=== PATIENT | male | born 1985 | race Caucasian/White ===

== ENCOUNTER 2020-09-27 16:12 | Emergency (ER) | payer OTHER ==
[~2020-09-27] VITALS: Ht 180.3 cm; Wt 68.0 kg
[~2020-09-27 16:12] MED LIST: CLINDAMYCIN HC300 MG PO; DEXILANT60 M1 PO; MOTRIN800 MG PO; NKHM; STOMACH PILL; TRAMADOL HCL50 MG PO
== END 2020-09-27 18:45 | disposition home or self-care (01) ==
LOC: ED 16:12
DX: S93.492A Sprain of other ligament of left ankle, initial encounter (principal); Z79.899 Other long term (current) drug therapy; X50.1XXA Overexertion from prolonged static or awkward postures, initial encounter; Y93.89 Activity, other specified; Y92.89 Other specified places as the place of occurrence of the external cause; Y99.9 Unspecified external cause status

== ENCOUNTER 2020-12-17 01:51 | Emergency (ER) | payer OTHER ==
[~2020-12-17] VITALS: Ht 182.8 cm; Wt 59.4 kg
[2020-12-17] MEDS ORDERED: SEPTDS PO (02:24)
== END 2020-12-17 02:37 | disposition home or self-care (01) ==
LOC: ED 01:51
DX: M79.644 Pain in right finger(s) (principal); M79.89 Other specified soft tissue disorders; L53.9 Erythematous condition, unspecified; Z79.899 Other long term (current) drug therapy

== ENCOUNTER 2022-07-02 09:16 | Emergency (ER) | payer SELFPAY ==
[~2022-07-02] VITALS: Ht 180.3 cm; Wt 70.8 kg
[~2022-07-02 09:16] MED LIST changes: +SEPTDS PO
[2022-07-02 09:52] LABS: BASO # 0.1 10*3/uL (0.0-0.1); BASO % 0.7 % (0.0-1.0); EOS % 0.1 % (1.0-4.0); HEMATOCRIT 45.1 % (42.0-52.0); LYMPH # 1.8 10*3/uL (1.3-4.4); MEAN CELL VOLUME 88.8 fl (80.0-94.0); MEAN CORPUSCULAR HGB 29.3 pg (27.0-31.0); MEAN PLATELET VOLUME 10.2 fl (9.6-12.3); MONO # 0.7 10*3/uL (0.1-1.0); MONO % 10.5 % (3.0-9.0); NEUT # 4.3 10*3/uL (2.3-7.9); NEUT % 62.4 % (47.0-73.0); PLATELET COUNT AUTOMATED 275 10*3/uL (130-400); RED BLOOD COUNT 5.08 10*6/uL (4.50-5.90); RED CELL DISTRI WIDTH 13.3 % (0-14.5)
[2022-07-02 10:04] LABS: BUN 11 mg/dl (9-23); CHLORIDE 101 mmol/L (98-107); POTASSIUM 3.6 mmol/L (3.4-5.1)
[2022-07-02] MEDS ORDERED: NAPROXEN250 MG PO (10:21)
== END 2022-07-02 10:33 | disposition home or self-care (01) ==
LOC: ED 09:16
PROVIDERS: Internal Medicine
DX: M25.461 Effusion, right knee (principal); M25.561 Pain in right knee

== ENCOUNTER 2023-09-24 22:07 | Emergency (ER) | payer SELFPAY ==
[~2023-09-24] VITALS: Ht 180.3 cm; Wt 63.5 kg
[~2023-09-24 22:07] MED LIST changes: +NAPROXEN250 MG PO
[2023-09-24 23:09] LABS: HEMATOCRIT 48.1 % (42.0-52.0); MANUAL DIFF REFLEX YES; MEAN CELL VOLUME 88.9 fl (80.0-94.0); MEAN CORPUSCULAR HGB 28.7 pg (27.0-31.0); MEAN CORPUSCULAR HGB CONC 32.2 g/dl (33.0-37.0); PLATELET COUNT AUTOMATED 363 10*3/uL (130-400); RED BLOOD COUNT 5.41 10*6/uL (4.50-5.90); RED CELL DISTRI WIDTH 12.7 % (0-14.5); WHITE BLOOD COUNT 12.4 10*3/uL (4.8-10.8)
[2023-09-24 23:30] LABS: ALKALINE PHOSPHATASE 92 U/L (46-116); BUN 17 mg/dl (9-23); CHLORIDE 107 mmol/L (98-107); POTASSIUM 3.5 mmol/L (3.4-5.1); SGPT/ALT 14 U/L (5-49); TOTAL PROTEIN 6.9 gm/dL (6.0-8.0)
[2023-09-25 00:02] LABS: BILIRUBIN Negative (Negative); BLOOD Trace-Lysed (Negative); CLARITY Clear (Clear); COLOR Yellow (Yellow); GLUCOSE Trace (Negative); KETONE Negative (Negative); LEUKO ESTERASE Negative (Negative); NITRITE Negative (Negative); PH 5.5 (4.5-8.0); SPECIFIC GRAVITY >= 1.030 (1.001-1.030)
[2023-09-25 00:03] LABS: PLATELET SUFFICIENCY NORMAL (NORMAL); TOTAL CELLS COUNTED 100 #CELLS
[2023-09-25 00:09] LABS: URINE AMPHETAMINES Positive (1000ng/ml); URINE BARBITURATES Negative (200ng/ml); URINE BENZODIAZEPINES Negative (200ng/ml); URINE CANNABINOIDS (THC) Negative (50ng/ml); URINE COCAINE Negative (300ng/ml); URINE METHADONE Negative (300ng/ml); URINE OPIATES Negative (300ng/ml); URINE PHENCYCLIDINE Negative (25ng/ml)
[2023-09-25 00:35] LABS: BACTERIA TRACE; MUCOUS TRACE; RBC 0-2 rbc/hpf (0-2); WBC 0-2 wbc/hpf (0-5)
[2023-09-25] MEDS ORDERED: LORazepam 1 MG TAB PO ONE (01:30)
== END 2023-09-25 02:06 | disposition left against medical advice (07) ==
LOC: ED 22:07
PROVIDERS: Emergency Medicine
DX: R10.32 Left lower quadrant pain (principal); J45.909 Unspecified asthma, uncomplicated; K21.9 Gastro-esophageal reflux disease without esophagitis; Z53.29 Procedure and treatment not carried out because of patient's decision for other reasons

== ENCOUNTER 2023-11-17 06:17 | Emergency (ER) | payer SELFPAY ==
[~2023-11-17] VITALS: Ht 180.3 cm; Wt 68.0 kg
[2023-11-17] MEDS ORDERED: Bacitracin Zinc 14 GM TUBE T ONE (06:35)
== END 2023-11-17 06:53 | disposition home or self-care (01) ==
LOC: ED 06:17
DX: L98.9 Disorder of the skin and subcutaneous tissue, unspecified (principal); Z79.2 Long term (current) use of antibiotics; Z79.899 Other long term (current) drug therapy

== ENCOUNTER 2024-08-15 16:27 | Emergency (ER) | payer MEDICAID ==
[~2024-08-15] VITALS: Wt 68.0 kg
[2024-08-15] MEDS ORDERED: PENICILLIN VK500 MG PO (16:53)
== END 2024-08-15 16:53 | disposition home or self-care (01) ==
LOC: ED 16:27
DX: K08.89 Other specified disorders of teeth and supporting structures (principal); J45.909 Unspecified asthma, uncomplicated; K21.9 Gastro-esophageal reflux disease without esophagitis

== ENCOUNTER 2024-11-20 23:13 | Emergency (ER) | payer MEDICAID ==
[~2024-11-20] VITALS: Ht 177.8 cm; Wt 63.5 kg
[~2024-11-20 23:13] MED LIST changes: +PENICILLIN VK500 MG PO
[2024-11-20] MEDS ORDERED: LISSAMINE GREEN 1.5 MG STRIP OP ONE (23:30)
[2024-11-20] MEDS ORDERED: ERYTHROMYCIN OPH1 GM OPH (23:48)
[2024-11-20] MEDS ORDERED: ERYTHROMYCIN 1 GM TUBE OPH ONE (23:50)
== END 2024-11-21 | disposition home or self-care (01) ==
LOC: ED 23:13
DX: T15.92XA Foreign body on external eye, part unspecified, left eye, initial encounter (principal); H18.892 Other specified disorders of cornea, left eye; W22.8XXA Striking against or struck by other objects, initial encounter; Y93.89 Activity, other specified; Y92.89 Other specified places as the place of occurrence of the external cause; Y99.8 Other external cause status

== ENCOUNTER 2025-04-08 00:35 | Emergency (ER) | payer MEDICAID ==
[~2025-04-08] VITALS: Ht 175.2 cm; Wt 61.2 kg
[~2025-04-08 00:35] MED LIST changes: +ERYTHROMYCIN OPH1 GM OPH
[2025-04-08] MEDS ORDERED: IBUPROFEN 600 MG TAB PO ONE (00:55)
[2025-04-08] MEDS ORDERED: Lidocaine Hydrochloride 2% 10 ML AMP SC ONE (00:55)
[2025-04-08] MEDS ORDERED: ACETAMINOPHEN 325 MG TAB PO ONE (00:55)
[2025-04-08] MEDS ORDERED: MELOXICAM15 MG PO (01:02)
[2025-04-08] MEDS ORDERED: ORAJEL 4X TOOTHA7 GM MM (01:02)
== END 2025-04-08 01:33 | disposition home or self-care (01) ==
LOC: ED 00:35
DX: K06.8 Other specified disorders of gingiva and edentulous alveolar ridge (principal); J45.909 Unspecified asthma, uncomplicated; K21.9 Gastro-esophageal reflux disease without esophagitis